=== PATIENT | female | born 1980 | race Caucasian/White ===

== ENCOUNTER 2018-05-09 13:28 | Outpatient (CLI) | payer OTHER | END 2018-05-09 13:29 | disposition home or self-care (01) | LOC: DTY/OP 13:28 | PROVIDERS: ATTEND Surgery | DX: E66.01 Morbid (severe) obesity due to excess calories (principal) | CPT/HCPCS: 97802 ==

== ENCOUNTER 2018-05-30 07:39 | Outpatient (CLI) | payer OTHER ==
[2018-05-30 09:00] LABS: Hemoglobin A1c 5.5 % (4.0-6.0)
[2018-05-30 09:01] LABS: BHCG - Serum Negative (NEGATIVE); Pregs Control Background? CLEAR/WHITE (CLR/WHITE); Pregs Control Bar Appear? YES (CONTROL BAR)
[2018-05-30 09:10] LABS: #Basophils 0.1 thou/uL (0.0-0.2); #Eosinphils 0.1 thou/uL (0.0-0.7); #Lymphocytes 1.8 thou/uL (1.20-3.40); #Monocytes 0.6 thou/uL (0.11-0.59); #Neutrophils 4.7 thou/uL (1.40-6.50); %Basophils 0.7 % (0.0-1.0); %Eosinophils 2.1 % (0.0-10.0); %Lymphocytes 24.5 % (21.0-51.0); %Monocytes 7.9 % (0.0-10.0); %Neutrophils 64.8 % (42.0-75.0); Hemoglobin 12.8 g/dL (12.0-16.0); Mean Corpuscular HGB CONC 32.5 g/dL (32.0-36.0); Mean Corpuscular Hemoglobin 27.3 pg (27.0-31.0); Mean Corpuscular Volume 84.1 fL (78.0-98.0); Mean Platelet Volume 8.7 fL (7.4-10.4); Platelet Count 265 thou/uL (130-400); RBC Distribution Width 14.2 % (11.5-14.5); Red Blood Cell (RBC) Count 4.68 mill/uL (4.20-5.40); White Blood Cell (WBC) Count 7.2 thou/uL (4.8-10.8)
[2018-05-30 09:20] LABS: ALT (SGPT) 44 U/L (8-55); AST (SGOT) 27 U/L (5-34); Albumin 4.1 g/dL (3.5-5.0); Alkaline Phosphatase 75 U/L (40-150); Anion Gap 13 mmol/L (10-20); BUN (Urea Nitrogen) 23 mg/dL (7.0-18.7); Bilirubin, Direct 0.2 mg/dL (0.1-0.3); Bilirubin, Total 0.5 mg/dL (0.2-1.2); Calc. Creatinine Clearance 0 mL/min (70-130); Calcium 9.5 mg/dL (7.8-10.44); Carbon Dioxide 24 mmol/L (22-29); Chloride 103 mmol/L (98-107); Estimated GFR-MDRD 76; Globulin 3.8 g/dL (2.4-3.5); Glucose 93 mg/dL (70-105); Potassium 3.9 mmol/L (3.5-5.1); Protein, Total 7.9 g/dL (6.0-8.3); Sodium 136 mmol/L (136-145)
--- NOTE | 2018-05-30 10:38 | RAD ---
TWO VIEW CHEST SERIES: INDICATIONS: Preoperative evaluation. COMPARISON: None. FINDINGS: There is no evidence of consolidation, effusion, or pneumothorax. The cardiac silhouette is normal i n size. IMPRESSION: No focal consolidation. POS: JASON
--- NOTE | 2018-06-01 08:28 | EKG ---
Test Reason : Blood Pressure : / mmHG Vent. Rate : 071 BPM Atrial Rate : 071 BPM P-R Int : 176 ms QRS Dur : 104 ms QT Int : 426 ms P-R-T Axes : 057 -04 057 degrees QTc Int : 462 ms Normal sinus rhythm Low voltage QRS Possible Inferior infarct , age undetermined Cannot rule out Anterior infarct , age undetermined (Doubtful) Abnormal ECG No previous ECGs available Confirmed by JARRETT BIRMINGHAM ([id number]) on 06/01/2018 8:28:20 AM Referred By: Benji LEUNG Confirmed By:JARRETT BIRMINGHAM
== END 2018-05-30 07:40 | disposition home or self-care (01) ==
LOC: LABBT 07:39
PROVIDERS: ATTEND Surgery
DX: Z01.818 Encounter for other preprocedural examination (principal); E66.01 Morbid (severe) obesity due to excess calories
CPT/HCPCS: 71046; 80053; 80076; 83036; 84703; 85025; 93005; 93010

== ENCOUNTER 2018-05-30 08:00 | Inpatient (IN) | payer OTHER ==
[2018-06-05] MEDS ORDERED: Famotidine/PF 20 mg/2ml Vial ONE (10:57)
[2018-06-05] MEDS ORDERED: CEFAZOLIN/Water 2 GM/20 ML SYRINGE ONE (10:57)
[2018-06-05] MEDS ORDERED: Ondansetron PF 4 MG/2 ML Vial ONE ×2 (10:57→15:19)
[2018-06-05] MEDS ORDERED: Scopolamine 1.5 mg/72 hour Patch ONE (10:57)
[2018-06-05] MEDS ORDERED: Heparin 5,000 UNITS/ML VIAL ONE (10:57)
[2018-06-05] MEDS ORDERED: Fentanyl 100 MCG/2 ML VIAL ONE ×3 (12:02→14:30)
[2018-06-05] MEDS ORDERED: Bupivacaine/Epinephrine 0.25% 30 ML VIAL ONE ×2 (12:11)
[2018-06-05] MEDS ORDERED: Promethazine HCl 25 MG/ML VIAL ONE (13:53)
[2018-06-05] MEDS ORDERED: Promethazine HCl 25 MG/ML VIAL SLOW IVP PRN (13:55)
[2018-06-05] MEDS ORDERED: Promethazine HCl 25 MG/ML VIAL IM PRN ×3 (13:55→14:36)
[2018-06-05] MEDS ORDERED: Ondansetron HCl/PF 4 MG/2 ML Vial IVP PRN (13:55)
[2018-06-05] MEDS ORDERED: Ondansetron PF 4 MG/2 ML Vial IVP PRN ×2 (14:33→14:36)
[2018-06-05] MEDS ORDERED: Zolpidem Tartrate 5 MG TAB PO PRN (14:33)
[2018-06-05] MEDS ORDERED: diphenhydrAMINE 50 MG/ML VIAL IM PRN (14:33)
[2018-06-05] MEDS ORDERED: Naloxone HCl 0.4 mg/ml Vial IV PRN (14:33)
[2018-06-05] MEDS ORDERED: fentaNYL Citrate/PF 2,000 MCG in Sodium Chloride 0.9% 60 ML IV PRN (14:33)
[2018-06-05] MEDS ORDERED: diphenhydrAMINE 50 MG/ML VIAL IVP PRN ×2 (14:33→14:36)
[2018-06-05] MEDS ORDERED: Ketorolac Tromethamine 30 MG/ML VIAL IVP PRN (14:33)
[2018-06-05] MEDS ORDERED: diphenhydrAMINE 25 MG CAP PO PRN (14:33)
[2018-06-05] MEDS ORDERED: Dextrose 50% Abboject 50 ML SYRINGE SLOW IVP PRN (14:36)
[2018-06-05] MEDS ORDERED: hydrALAZINE 20 MG/ML VIAL SLOW IVP PRN (14:36)
[2018-06-05] MEDS ORDERED: Dextrose 5% in Water 1,000 ML IV PRN (14:36)
[2018-06-05] MEDS ORDERED: Hydrocodone-Acetamin 15 ML UDCUP PO PRN (14:36)
[2018-06-05] MEDS ORDERED: fentaNYL Citrate/PF 2,000 MCG in Sodium Chloride 0.9% 60 ML EPIDURAL ONE (14:41)
[2018-06-05] MEDS ORDERED: Communication Order-Pharmacy FS SCH (14:45)
[2018-06-05] MEDS ORDERED: Dexamethasone 20 MG/5 ML VIAL ONE (15:19)
[2018-06-05] MEDS ORDERED: Glycopyrrolate 0.2 MG/ML 5 ML SYRINGE ONE (15:19)
[2018-06-05] MEDS ORDERED: Lidocaine 1% PF 5 ML VIAL ONE (15:19)
[2018-06-05] MEDS ORDERED: PROPOFOL 200 MG/20 ML VIAL ONE (15:19)
[2018-06-05] MEDS: D5 1/2 NS w/20 mEq KCL 1,000 ML IV SCH (15:45)
[2018-06-05 17:06] VITALS: BMI 46.7
[2018-06-05] MEDS: Acetaminophen 1,000 MG in Premix Bag 1 BAG IVPB SCH ×2 (18:20→23:36)
--- NOTE | 2018-06-05 19:45 | OP ---
DATE OF PROCEDURE: 06/05/2018 PREOPERATIVE DIAGNOSIS: Morbid obesity with a body mass index of 48. POSTOPERATIVE DIAGNOSES: 1. Morbid obesity with a body mass index of 48. 2. Paraesophageal hiatal hernia. PROCEDURES: 1. Laparoscopic sleeve gastrectomy with [place] staple line reinforcements and 38-[place] bougie. 2. Paraesophageal hiatal hernia repair without fundoplication or mesh. 3. Esophagogastroduodenoscopy. SURGEON: Dr. Mcneil. ANESTHESIA: General. ESTIMATED BLOOD LOSS: 20 mL. COMPLICATIONS: None. FINDINGS: Paraesophageal hiatal hernia. TECHNIQUE: The patient was taken to the operating room and placed supine on the table. After genera l anesthetic was obtained, bilateral legs and arms were double strapped to bariatric table. OG tube was used to decompress the stomach. The abdomen is prepped and draped in a sterile fashion. Left haynes bcostal 5-mm Optiview trocar was placed in the usual fashion. High-flow pneumoperitoneum is obtained . Left and right abdominal 12-mm ports as well as a right subcostal 5-mm port are placed under direc t visualization. A 5-mm incision was made at the xiphoid and Michael used to raise the liver off t he GE junction. The short gastrics are taken down from the mid stomach all the way to the left thanh of the diaphragm. The left thanh, posterior fundus and angle of His is completely dissected. During this dissection, a hiatal hernia is found. A circumferential dissection of the esophagus is performe d bringing the fundus back down into the abdominal cavity. Short gastrics are taken down to a distan ce of 5 cm proximal to the pylorus. A 38 bougie was brought in and its tip left in the antrum of the stomach. Ethibond suture and the tie knot system used to place one suture posteriorly to reapproxim ate the left and right crura. Multiple loads of an [place] stapling device are used to form the slee ve. The first is fired up at a distance of 6 cm proximal to the pylorus angled up towards the incisu ra. Care was taken to avoid being too close to incisura. Multiple loads were then fired up along th e bougie. Stomach is completely transected at the angle of His. The stomach is removed from the le ft abdominal incision. This fascial defect is closing GraNee needle 0 Vicryl tie. All port sites ar e infiltrated using local anesthetic. All ports are infiltrated using local anesthetic. EGD scope w as passed into the esophagus, stomach to the level of the duodenum without obstruction. There was no stricture at the incisura. There was no bleeding or air leakage along the staple line. The EGD sco pe was used to decompress the stomach, it was pulled and removed. The bougie had been removed. The liver retractor was removed under direct visualization. All ports were removed under direct visualiz ation without bleeding. Pneumoperitoneum was let down. Vicryl was used to close the fascial defect from left abdominal incisions. All incisions were irrigated and closed using 4-0 Monocryl and Dermab ond. The patient was en route to recovery in stable condition. All instrument counts, needle counts , lap counts are correct.
[2018-06-05] MEDS ORDERED: Enoxaparin Sodium 40 MG/0.4 ML SYRINGE SC SCH (21:00)
[2018-06-06] MEDS: Acetaminophen 1,000 MG in Premix Bag 1 BAG IVPB SCH (05:43)
[2018-06-06] MEDS: D5 1/2 NS w/20 mEq KCL 1,000 ML IV SCH ×2 (05:57)
[2018-06-06 05:59] LABS: #Lymphocytes 0.8 thou/uL (1.20-3.40); #Monocytes 0.6 thou/uL (0.11-0.59); #Neutrophils 7.6 thou/uL (1.40-6.50); %Basophils 0.1 % (0.0-1.0); %Eosinophils 0.1 % (0.0-10.0); %Monocytes 6.6 % (0.0-10.0); %Neutrophils 84.2 % (42.0-75.0); Hemoglobin 13.1 g/dL (12.0-16.0); Mean Corpuscular HGB CONC 32.5 g/dL (32.0-36.0); Mean Corpuscular Hemoglobin 27.4 pg (27.0-31.0); Mean Corpuscular Volume 84.4 fL (78.0-98.0); Mean Platelet Volume 8.9 fL (7.4-10.4); Platelet Count 283 thou/uL (130-400); RBC Distribution Width 14.4 % (11.5-14.5); Red Blood Cell (RBC) Count 4.78 mill/uL (4.20-5.40); White Blood Cell (WBC) Count 9.1 thou/uL (4.8-10.8)
[2018-06-06 06:24] LABS: Anion Gap 10 mmol/L (10-20); BUN (Urea Nitrogen) 8 mg/dL (7.0-18.7); Calc. Creatinine Clearance 205 mL/min (70-130); Calcium 8.9 mg/dL (7.8-10.44); Carbon Dioxide 25 mmol/L (22-29); Chloride 105 mmol/L (98-107); Estimated GFR-MDRD 89; Glucose 136 mg/dL (70-105); Potassium 3.9 mmol/L (3.5-5.1); Sodium 136 mmol/L (136-145)
[2018-06-06 07:20] VITALS: BP 119/84; TEMP 98
[2018-06-06] MEDS ORDERED: Pantoprazole 40 MG VIAL IVP SCH (09:00)
[2018-06-06] MEDS ORDERED: fentaNYL Citrate/PF 2,000 MCG in Sodium Chloride 0.9% 60 ML EPIDURAL ONE (11:28)
--- NOTE | 2018-06-06 11:49 | DIS ---
ADMIT DIAGNOSIS: Morbid obesity. DISCHARGE DIAGNOSES: Morbid obesity, hiatal hernia. PROCEDURES: Laparoscopic sleeve gastrectomy with hiatal hernia repair by Dr. Mcneil without complic ation. CONDITION AT DISCHARGE: Improved. STAFF: Dr. Reggie Mcneil HOSPITAL COURSE: On postop day 1, the patient is tolerating clear liquids. She will be discharged h ome. Prescriptions for Lortab elixir, Zofran dissolvable and pantoprazole were given and already brinda led into her pharmacy. She will follow up with me in 2 weeks.
== END 2018-06-06 11:29 | disposition home or self-care (01) | DRG 621 ==
LOC: SURG B 06-05 09:58 → SURG A 06-05 15:56
PROVIDERS: ADMIT Surgery; ATTEND Surgery
PROC: 0DB64Z3 Excision of Stomach, Percutaneous Endoscopic Approach, Vertical (ICD-10-PCS; principal; 2018-06-05)
PROC: 0BQT4ZZ Repair Diaphragm, Percutaneous Endoscopic Approach (ICD-10-PCS; 2018-06-05)
PROC: 0DJ08ZZ Inspection of Upper Intestinal Tract, Via Natural or Artificial Opening Endoscopic (ICD-10-PCS; 2018-06-05)
DX: E66.01 Morbid (severe) obesity due to excess calories (principal); Z68.42 Body mass index [BMI] 45.0-49.9, adult; K44.9 Diaphragmatic hernia without obstruction or gangrene
CPT/HCPCS: 36415; 80048; 85025; 88307; 88312; 96374; C9113; J0131; J1100; J1644; J1650; J2001; J2405; J2550; J2704; J3010; J7050; S0028